=== PATIENT | male | born 1960 | race Caucasian/White ===

== ENCOUNTER → 2018-08-03 | Outpatient (CLI) | payer OTHER ==
[~2018-08-03] MED LIST: ACETAMINOPHEN-1 EAC1 PO; DARVOCET-N 1001 EACH PO; EYE DROPS; IBUPROFEN200 M2 PO; LUNESTA3 MG PO; SERTRALINE HCL100 MG PO; WELLBUTRIN 100100 MG NG; XARELTO20 MG PO; ZANAFLEX2 MG PO
== END ==
LOC: M.PC 07:30
DX: M51.16 Intervertebral disc disorders with radiculopathy, lumbar region (principal); M47.26 Other spondylosis with radiculopathy, lumbar region

== ENCOUNTER → 2018-08-31 | Outpatient (CLI) | payer OTHER | END | disposition home or self-care (01) | LOC: M.PC 03:37 | DX: M54.16 Radiculopathy, lumbar region (principal); G89.29 Other chronic pain; Z79.899 Other long term (current) drug therapy ==

== ENCOUNTER → 2018-09-14 | Outpatient (CLI) | payer OTHER | LOC: M.PC 05:32 | DX: M47.26 Other spondylosis with radiculopathy, lumbar region (principal); M51.16 Intervertebral disc disorders with radiculopathy, lumbar region; M16.0 Bilateral primary osteoarthritis of hip; M47.818 Spondylosis without myelopathy or radiculopathy, sacral and sacrococcygeal region; M53.3 Sacrococcygeal disorders, not elsewhere classified; Z68.41 Body mass index [BMI] 40.0-44.9, adult ==

== ENCOUNTER → 2018-09-28 | Outpatient (CLI) | payer OTHER | END | disposition home or self-care (01) | LOC: M.PC 05:15 | DX: M51.16 Intervertebral disc disorders with radiculopathy, lumbar region (principal); M47.26 Other spondylosis with radiculopathy, lumbar region; M53.3 Sacrococcygeal disorders, not elsewhere classified; G47.30 Sleep apnea, unspecified; Z87.442 Personal history of urinary calculi; Z90.49 Acquired absence of other specified parts of digestive tract; Z98.890 Other specified postprocedural states; Z79.899 Other long term (current) drug therapy ==

== ENCOUNTER → 2018-10-12 | Outpatient (CLI) | payer OTHER ==
[~2018-10-12] MED LIST changes: +IBUPROFEN 800800 M1 PO
== END ==
LOC: M.PC 04:52
DX: M54.5 Low back pain (principal); M79.604 Pain in right leg; M79.605 Pain in left leg; M16.0 Bilateral primary osteoarthritis of hip; M51.16 Intervertebral disc disorders with radiculopathy, lumbar region; M47.26 Other spondylosis with radiculopathy, lumbar region; I82.409 Acute embolism and thrombosis of unspecified deep veins of unspecified lower extremity

== ENCOUNTER → 2018-10-19 | Outpatient (CLI) | payer OTHER | END | disposition home or self-care (01) | LOC: M.PC 05:22 | DX: M17.12 Unilateral primary osteoarthritis, left knee (principal); Z88.8 Allergy status to other drugs, medicaments and biological substances; Z79.899 Other long term (current) drug therapy; Z98.890 Other specified postprocedural states ==

== ENCOUNTER → 2018-10-26 | Outpatient (CLI) | payer OTHER | END | disposition home or self-care (01) | LOC: M.PC 05:13 | DX: M17.12 Unilateral primary osteoarthritis, left knee (principal); Z98.890 Other specified postprocedural states; Z79.899 Other long term (current) drug therapy ==

== ENCOUNTER → 2018-11-02 | Outpatient (CLI) | payer OTHER | END | disposition home or self-care (01) | LOC: M.PC 05:04 | DX: M17.12 Unilateral primary osteoarthritis, left knee (principal); M25.562 Pain in left knee; G89.29 Other chronic pain; M51.16 Intervertebral disc disorders with radiculopathy, lumbar region; M47.26 Other spondylosis with radiculopathy, lumbar region; M53.3 Sacrococcygeal disorders, not elsewhere classified; Z90.49 Acquired absence of other specified parts of digestive tract; Z98.890 Other specified postprocedural states; Z79.899 Other long term (current) drug therapy ==

== ENCOUNTER → 2018-11-09 | Outpatient (CLI) | payer OTHER | END | disposition home or self-care (01) | LOC: M.PC 05:28 | DX: M17.11 Unilateral primary osteoarthritis, right knee (principal); R07.9 Chest pain, unspecified; Z88.8 Allergy status to other drugs, medicaments and biological substances; Z79.899 Other long term (current) drug therapy ==

== ENCOUNTER → 2018-11-16 | Outpatient (CLI) | payer OTHER | END | disposition home or self-care (01) | LOC: M.PC 04:53 | DX: M17.11 Unilateral primary osteoarthritis, right knee (principal); M25.561 Pain in right knee; G47.30 Sleep apnea, unspecified; Z87.442 Personal history of urinary calculi; Z98.890 Other specified postprocedural states; Z90.49 Acquired absence of other specified parts of digestive tract ==

== ENCOUNTER → 2018-11-23 | Outpatient (CLI) | payer OTHER | END | disposition home or self-care (01) | LOC: M.PC 04:53 | DX: M17.11 Unilateral primary osteoarthritis, right knee (principal); M54.5 Low back pain; G89.29 Other chronic pain; Z90.49 Acquired absence of other specified parts of digestive tract; Z87.442 Personal history of urinary calculi; Z98.890 Other specified postprocedural states; Z79.899 Other long term (current) drug therapy ==

== ENCOUNTER → 2019-01-02 | Outpatient (CLI) | payer OTHER | LOC: M.PC 04:36 | DX: M47.26 Other spondylosis with radiculopathy, lumbar region (principal); M51.16 Intervertebral disc disorders with radiculopathy, lumbar region; M16.0 Bilateral primary osteoarthritis of hip; Z79.899 Other long term (current) drug therapy ==

== ENCOUNTER → 2019-01-09 | Outpatient (CLI) | payer OTHER | END | disposition home or self-care (01) | LOC: M.PC 01:51 | DX: M54.5 Low back pain (principal); M47.816 Spondylosis without myelopathy or radiculopathy, lumbar region; M51.36 Other intervertebral disc degeneration, lumbar region; M53.3 Sacrococcygeal disorders, not elsewhere classified; M16.0 Bilateral primary osteoarthritis of hip; M19.90 Unspecified osteoarthritis, unspecified site; Z86.718 Personal history of other venous thrombosis and embolism; Z79.01 Long term (current) use of anticoagulants; Z98.890 Other specified postprocedural states; Z79.899 Other long term (current) drug therapy ==

== ENCOUNTER → 2019-01-16 | Outpatient (CLI) | payer OTHER | END | disposition home or self-care (01) | LOC: M.PC 04:43 | DX: M54.5 Low back pain (principal); M47.816 Spondylosis without myelopathy or radiculopathy, lumbar region; M51.36 Other intervertebral disc degeneration, lumbar region; M53.3 Sacrococcygeal disorders, not elsewhere classified; M16.0 Bilateral primary osteoarthritis of hip; Z98.890 Other specified postprocedural states ==

== ENCOUNTER → 2019-03-06 | Outpatient (CLI) | payer OTHER ==
[~2019-03-06] MED LIST changes: +GLYCOPYRROLATE 11 MG PO
== END ==
LOC: M.PC 01:26
DX: M51.16 Intervertebral disc disorders with radiculopathy, lumbar region (principal); M47.26 Other spondylosis with radiculopathy, lumbar region; M16.0 Bilateral primary osteoarthritis of hip; M17.0 Bilateral primary osteoarthritis of knee